=== PATIENT | male | born 1970 | race Caucasian/White ===

== ENCOUNTER 2017-09-22 07:01 | Emergency (ER) | payer OTHER ==
[~2017-09-22] VITALS: Ht 182.9 cm; Wt 82.6 kg
[~2017-09-22 07:01] MED LIST: ASPIR-TRIN325 M1 PO; NOHOMEMEDS
[2017-09-22 07:46] LABS: HEMATOCRIT 45.8 % (38.0-50.0); MCH 34.5 PG (29.0-34.0); MCHC 34.9 G/DL (30.0-36.0); MCV 98.7 FL (86-99); PLATELET COUNT 292 K/uL (156-360); RBC DIS.WIDTH-CV 13.4 % (11.8-14.6); RBC DIS.WIDTH-SD 48.8 % (39-53); RED BLOOD COUNT 4.64 M/uL (4.00-5.50); WHITE BLOOD COUNT 8.5 K/uL (4.1-10.2)
[2017-09-22 08:12] LABS: CHLORIDE 109 MEQ/L (99-109); CREATININE 0.9 MG/DL (0.6-1.3); GFR ESTIMATE (CALCULATED) > 59 mL/min/ (58.99-99999); GLUCOSE 102 mg/dL (70-99); POTASSIUM 4.5 MEQ/L (3.7-5.4); SODIUM 138 MEQ/L (136-147); UREA NITROGEN (BUN) 15 mg/dL (9-23)
[2017-09-22 08:39] LABS: ABS NEUTROPHIL COUNT 4.4; BASOPHILS 0.9 %; EOSINOPHIL ABS CT 0.6; EOSINOPHILS 7.1 % (0-5.0); LYMPHOCYTES 26.5 % (15.0-45.0); MONOCYTES 6.2 % (0-9.0); PLAT.SUFFICIENCY DECREASED; SEG.NEUTROPHILS 51.3 % (46.0-76.0)
[2017-09-22 09:02] LABS: APPEARANCE CLEAR ((CLEAR)); BILIRUBIN NEGATIVE; BLOOD NEGATIVE; COLOR YELLOW ((YELLOW)); GLUCOSE (STRIP) NEGATIVE; KETONES NEGATIVE; LEUKOCYTES NEGATIVE; NITRITE NEGATIVE; PROTEIN (STRIP) NEGATIVE; UROBILINOGEN 0.2 MG/DL (0.2-1.0)
[2017-09-22] MEDS ORDERED: BENTYL20 MG PO (09:08)
[2017-09-22 09:19] VITALS: BP 136/88
== END 2017-09-22 09:15 | disposition home or self-care (01) ==
LOC: EME 07:01
PROVIDERS: Emergency Medicine
DX: R10.32 Left lower quadrant pain (principal); F32.9 Major depressive disorder, single episode, unspecified; F17.200 Nicotine dependence, unspecified, uncomplicated
CPT/HCPCS: 74176; 80048; 81003; 85025; 99281; 99284